=== PATIENT | female | born 1970 | race Caucasian/White ===

== ENCOUNTER 2020-03-19 06:53 | Emergency (ER) | payer OTHER, SELFPAY ==
[2020-03-19 07:00] VITALS: BP 158/90; PULSE 79; RESP 16; TEMP 36.2; O2SAT 98
--- NOTE | 2020-03-19 07:06 | ED.WOUNDLAC ---
HPI - Wound/Laceration General Chief Complaint: Wound/Laceration Stated Complaint: Laceration/infection? Time Seen by Provider: 03/19/20 06:59 History of Present Illness HPI narrative: Patient presents with several sores. She has redness and tenderness on the distal right thumb and distal right index finger. She said she was picking at a cuticle a week ago. She is right-handed. She works at [employer]. She says the pain on her right index finger is 7 out of 10. She also has a sore on her right upper eyelid. She said that she picked at it this morning and a parasite came out. She also points to her right arm and says see the streaks, those are parasites . Family when I asked if she has any other sores she said yes on her nose. She pulls her mask down and her nose has clear nasal drainage with a sore on the tip. She smokes cigarettes, drinks alcohol, smokes marijuana. She denies any surgeries. She denies having been sick in the last 2 weeks. Onset (ago): week(s) Extremity Location: Right: hand Place: home Context: other (Picking at her cuticle) Associated symptoms: pain Treatments prior to arrival: bandage Related Data Home Medications Medication Instructions Recorded Confirmed No Home Medications 03/19/20 03/19/20 Allergies Allergy/AdvReac Type Severity Reaction Status Date / Time No Known Allergies Allergy Mild Verified 03/19/20 07:07 Review of Systems Review of Systems: Narrative: CONSTITUTIONAL: Denies fever, chills, or sweats. EYES: Denies visual changes, redness, or discharge. ENT: Denies rhinorrhea, congestion, sore throat, or otalgia. CARDIOVASCULAR: Denies chest pain, palpitations, or edema. RESPIRATORY: Denies cough or dyspnea. GASTROINTESTINAL: Denies abdominal pain, nausea, vomiting, or diarrhea. GENITOURINARY: Denies dysuria or hematuria. SKIN: Soreness on the tips of her right thumb, right index finger, right upper eyelid, tip of her nose. MUSCULOSKELETAL: Denies back pain, joint pain, or myalgia. NEUROLOGIC: Denies headache, numbness, or weakness. . All systems reviewed & are unremarkable except as noted in HPI and below PMFSH Surgical History Surgical History No pertinent past surgical history Social History Social History (Updated 03/19/20 @ 07:10 by Vivian Wright MD) Smoking status: Current every day smoker Alcohol intake: current Substance use: current Substance use type: marijuana Gender identity (if verbalized by the patient): Female Exam Narrative: Exam Narrative: GENERAL: Well-appearing, well-nourished, and smells of alcohol. HEAD: Normocephalic, atraumatic. EYES: PERRLA and EOMI. right upper eyelid has a pickers ulcer and surrounding erythema. ENT: Nares clear nasal drainage. Mucous membranes moist. Scab on the tip of her nose. NECK: Supple. CHEST: Clear to auscultation. No respiratory distress. HEART: Regular rate and rhythm. No murmur heard. Normal peripheral pulses. ABDOMEN: Soft, nontender, nondistended, normal active bowel sounds. EXTREMITIES: Normal range of motion. No edema. Tip of the index finger on the right tip of the thumb on the right, both have mild erythema and cracked skin. SKIN: Warm, dry NEURO: No focal deficits. Alert and oriented x3. PSYCH: Seems sad and upset. MDM - Wound/Laceration Medical Records Attestation: I reviewed the patient's medical records. Discharge Plan Discharge Clinical Impression: Cellulitis Qualifiers: Site of cellulitis: unspecified site Qualified Code(s): L03.90 - Cellulitis, unspecified Patient Disposition: Home, Self-Care Condition: Stable Instructions: Antibiotic Form Prescriptions: No Action No Home Medications RF: 0 Follow-up/Referrals: PHYSICIAN,OPTICAL LAB TECHNICIAN [Primary Care Provider] - Time of Disposition: 07:06
[2020-03-19] MEDS: CEPHALEXIN 500 MG CAPSULE PO (07:17)
[2020-03-19] MEDS: ACETAMINOPHEN 325 MG TABLET 650 MG PO (07:17)
[2020-03-19] MEDS: IBUPROFEN 600 MG TABLET PO (07:18)
== END 2020-03-19 07:24 | disposition home or self-care (01) ==
LOC: ANHED 07:11
PROVIDERS: Emergency Provider Emergency Medicine
DX: L03.90 Cellulitis, unspecified (principal); F17.210 Nicotine dependence, cigarettes, uncomplicated
CPT/HCPCS: 99283; A9270

== ENCOUNTER 2021-01-10 18:24 | Emergency (ER) | payer OTHER, SELFPAY ==
--- NOTE | ~2021-01-10 | XR_ITS ---
XR chest 1V portable DATE: 01/10/2021 18:56 INDICATION: Shortness of breath TECHNIQUE: Portable AP chest on 01/10/2021 at 1847 hours COMPARISON: None FINDINGS: There is bibasilar discoid atelectasis. The lungs are otherwise clear. No pleural effusion or pulmonary vascular congestion or pneumothorax. Normal heart size. No hilar or mediastinal enlargement. IMPRESSION: Bibasilar atelectasis Reviewed, dictated and finalized at location A. IMPRESSION: Bibasilar atelectasis
[2021-01-10 18:27] VITALS: BP 122/68; PULSE 110; RESP 20; TEMP 36.7; O2SAT 95
--- NOTE | 2021-01-10 18:35 | ECG_ITS ---
Measurements Intervals [place] Rate: 98 P: 58 [place]: 115 QRS: 33 QRSD: 89 T: 34 QT: 356 QTc: 456 Interpretive Statements SINUS RHYTHM WITH SHORT [place] INTERVAL POSSIBLE LEFT ATRIAL ENLARGEMENT CONSIDER INFERIOR INFARCT, AGE INDETERMINATE T WAVE ABNORMALITY IN ANTERIOR LEADS- CONSIDER ISCHEMIA BASELINE WANDER- V3-V5 ABNORMAL ECG Electronically Signed On 01-10-2021 21:18:24 CDT by Jaya Fang D.O.
[2021-01-10 18:59] LABS: Basophils Percent Auto 0.3 % (0.2-1.2); Hematocrit 41.2 % (37.0-47.0); Hemoglobin 13.3 g/dL (12.0-15.0); Immature Granulocyte Absolute 0.05 K/mm3 (0.00-0.031); Immature Granulocyte Percent A 0.4 % (0-0.5); Lymphocytes Absolute Auto 0.33 K/mm3 (0.9-3.2); Lymphocytes Percent Auto 2.7 % (18.3-44.2); Mean Corpuscular HGB Conc 32.3 g/dl (32-36); Mean Corpuscular Hemoglobin 29.2 pg (26-34); Mean Corpuscular Volume 90.4 fl (80-100); Mean Platelet Volume 9.5 fl (7.4-10.4); Monocytes Absolute Auto 0.1 K/mm3 (0.1-0.6); Monocytes Percent Auto 1.1 % (2.6-8.5); Neutrophils Absolute Auto 11.6 K/mm3 (1.3-6.7); Neutrophils Percent Auto 95.5 % (45.5-73.1); Platelet Count Result 386 k/mm3 (150-375); Red Blood Count 4.56 M/mm3 (4.2-5.4); White Blood Count 12.2 K/mm3 (4.5-10.0)
[2021-01-10 19:01] VITALS: BP 108/74; PULSE 110; RESP 18; O2SAT 93
[2021-01-10 19:11] LABS: Anion Gap 13 mmol/L (8-16); Blood Urea Nitrogen 21 mg/dL (7-17); Calcium 8.7 mg/dL (8.4-10.2); Carbon Dioxide 21 mmol/L (22-30); Chloride 106 mmol/L (98-107); Estimated CRCL calculation 84 ml/min; Estimated Glomerular Filt Rate > 60; Glucose 243 mg/dL (65-105); Potassium 4.2 mmol/L (3.4-5.0); Sodium 140 mmol/L (137-145)
[2021-01-10 19:16] VITALS: BP 102/76; PULSE 95; RESP 24; O2SAT 97
--- NOTE | 2021-01-10 20:24 | ED.GENADULT ---
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 Patient under a lot of stress lately. History of panic attack. Patient smokes, drinks and uses marijuana. Patient had a recent diagnosis of skin rash left wrist and hand started 3 weeks ago started on antiviral treatment and prednisone, gradually getting better, the course repeated again few days ago. Patient denies any chest pain, fever, chills, nausea, vomiting, back pain or abdominal pain. Patient does not take medicine at home. Related Data Home Medications Medication Instructions Recorded Confirmed No Home Medications 03/19/20 01/10/21 Allergies Allergy/AdvReac Type Severity Reaction Status Date / Time No Known Allergies Allergy Mild Verified 01/10/21 18:53 Review of Systems Review of Systems: Narrative: CONSTITUTIONAL: Denies fever, chills, or sweats. EYES: Denies visual changes, redness, or discharge. ENT: Denies rhinorrhea, congestion, sore throat, or otalgia. CARDIOVASCULAR: Denies chest pain, palpitations, or edema. RESPIRATORY: Denies cough or dyspnea. GASTROINTESTINAL: Denies abdominal pain, nausea, vomiting, or diarrhea. GENITOURINARY: Denies dysuria or hematuria. SKIN: Denies rash or itching. MUSCULOSKELETAL: Denies back pain, joint pain, or myalgia. NEUROLOGIC: Denies headache, numbness, or weakness. PSYCHIATRIC: Denies anxiety or depression. PMFSH Surgical History Surgical History No pertinent past surgical history Social History Social History Smoking status: Current every day smoker Alcohol intake: current Substance use: current Substance use type: marijuana Gender identity (if verbalized by the patient): Female Exam Narrative: Exam Narrative: General appearance: Well-developed, well-nourished Skin: Left hand and wrist dorsally showed healing rash, no erythema, no warmth, no discharge. Head: Normocephalic, nontraumatic Eyes: Clear conjunctiva ENT: Oropharynx normal, ears normal, nose normal Neck: Supple, nontender Chest and respiratory: Airway patent, no respiratory distress, no accessory muscle use Heart: Tachycardia Abdomen: Soft, nontender, no organomegaly, quiet bowel sounds Vascular: Normal peripheral pulses, normal capillary refill. Musculoskeletal: Normal range of motion, nontender back Neurologic: Alert and oriented ?3, HEEL GUMMER is normal as tested, no gross motor deficit Course Course Emergency Course: Improved Vital Signs Vital signs: Vital Signs Temperature 36.7 C 01/10/21 18:27 Pulse Rate 110 H 01/10/21 18:27 Respiratory Rate 20 01/10/21 18:27 Blood Pressure 122/68 01/10/21 18:27 Pulse Oximetry 95 01/10/21 18:27 Temperature 36.7 C 01/10/21 18:27 Pulse Rate 110 H 01/10/21 18:27 Respiratory Rate 20 01/10/21 18:27 Blood Pressure 122/68 01/10/21 18:27 Pulse Oximetry 95 01/10/21 18:27 Medical Decision Making MDM Narrative Medical decision making narrative: Difficulty breathing earlier today high likely secondary to anxiety/panic attack, symptom resolved immediately on arrival to the emergency room. Labs, chest x-ray, UA, urine drug screen ordered. Further plan to follow Differential Diagnosis Differential Diagnosis: Anxiety related symptom
[2021-01-10] MEDS: SODIUM CHLORIDE 0.9% IV 1,000 ML 999 ML IV CONT (20:25)
[2021-01-10 20:26] LABS: Alanine Aminotransferase 20 U/L (4-35); Albumin Level 4.1 g/dL (3.5-5.1); Alkaline Phosphatase 81 U/L (38-126); Aspartate Amino Transferase 27 U/L (14-36); Bilirubin,Total 0.4 mg/dL (0.2-1.3)
[2021-01-10 20:32] VITALS: BP 105/66; PULSE 111; RESP 25
[2021-01-10 20:50] LABS: D Dimer 0.27 ug/mL (<0.48)
[2021-01-10 20:53] VITALS: BP 118/70; PULSE 92; RESP 20; TEMP 36.8; O2SAT 99
[2021-01-10 21:34] LABS: Barbiturate Screen Urine Negative (Negative); Benzodiazepines Screen Urine Positive (Negative)
[2021-01-10 21:35] LABS: Cannabinoid Screen Urine Positive (Negative); Methadone Screen Urine Negative (Negative); Opiate Screen Urine Negative (Negative); Phencyclidine Screen Urine Negative (Negative)
[2021-01-10 21:45] VITALS: BP 118/70; PULSE 98; RESP 20; TEMP 36.8; O2SAT 95
[2021-01-10 21:59] LABS: Cocaine Screen Urine Positive (Negative)
[2021-01-10 22:00] LABS: Amphetamine Screen Urine Positive (Negative)
[2021-01-13 23:30] LABS: Methyl Alcohol Level None Detected (None Detected)
== END 2021-01-10 21:45 | disposition home or self-care (01) ==
PROVIDERS: Emergency Provider Emergency Medicine
DX: F41.9 Anxiety disorder, unspecified (principal); R73.9 Hyperglycemia, unspecified; F17.200 Nicotine dependence, unspecified, uncomplicated; R94.31 Abnormal electrocardiogram [ECG] [EKG]; R91.8 Other nonspecific abnormal finding of lung field
CPT/HCPCS: 36415; 71045; 80048; 80076; 80307; 84600; 85025; 85380; 93005; 96360; 99284; J7030

== ENCOUNTER 2024-10-29 03:55 | Emergency (ER) | payer OTHER, SELFPAY ==
--- OUTSIDE RECORDS SUMMARY | 2024-10-29 03:57 | XMS_ITS | Clinical Summary ---
Author Organization [facility] Address [address] [place] [address] Care Team Providers Care Health Services Coordinator Name Role Phone Unknown, Provider Primary Care Provider Unavaila ble Source Comments [facility],non-owned Affiliates and Associated Physician Practices is amultiple site organization consisting of ambulatory clinics and hospital sitesin [place], [place], [place] and [place]. This disclosure is being madepursuant to the Care Everywhere program and may not contain all information available regarding this patient. Last updated 18.[facility] Allergies No known active allergies Medications * Be aware that medications may not be up to date on this document. Alwaysverify current medications with the patient. 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 Sexual Orientation Not on file Last Filed Vital Signs Vital Sign Reading Time Taken Comments Blood Pressure - - Pulse 108 09/16/2019 2:22 PM PARAEDUCATOR Temperature 36.9 C (98.5 F) 09/16/2019 2:22 PM PARAEDUCATOR Respiratory Rate 22 09/16/2019 2:22 PM PARAEDUCATOR Oxygen Saturation 97% 09/16/2019 2:22 PM PARAEDUCATOR Inhaled Oxygen Concentration - - Weight 77.1 kg (170 lb) 09/16/2019 2:22 PM PARAEDUCATOR Height 165.1 cm (5' 5 ) 09/16/2019 2:22 PM PARAEDUCATOR Body Mass Index 28.29 09/16/2019 2:22 PM PARAEDUCATOR Plan of Treatment Health Maintenance Due Date Last Done Comments COLOGUARD (AGES 45-75) - COL ON CA SCREENING 1970 COLON MONITORING 1970 COLONOSCOPY - COLON CA SCREENING 1970 CT COLONOGRAPHY - COLON CA SCREENING 1970 Colorectal Cancer Screening 1970 FIT - COLON CA SCREENING 1970 FLEX SIG - COLON CA SCREENING 1970 LIPID TESTING 1970 MAMMOGRAM 1970 PAP SMEAR 1970 HIV SCREENING 1985 HEPATITIS C SCREENING 07/11/1988 DTAP/TDAP/TD VACCINES (1 - Tdap) 1989 HEPATITIS B VACCINE (1 of 3 - 19+ 3-dose series) 1989 PNEUMOCOCCAL VACCINE (1 of 2 - PCV) 1989 SCREENING FOR DIABETES 09/16/2019 PNEUMOCOCCAL VACCINE 50+ (1 of 1 - PCV) 2020 ZOSTER VACCINE (1 of 2) 2020 COVID-19 VACCINE (1 - 2023-2 5 season) 2024 INFLUENZA VACCINE (#1) 2024 DEPRESSION SCREENING 08/07/2024 HIB VACCINE Aged Out No longer eligi ble based on patient's age to complete this topic HPV VACCINE Aged Out No longer eligi ble based on patient's age to complete this topic MENINGOCOCCAL (Group B) VACC INE SHARED DECISION-MAKING Aged Out No longer eligibl e based on patient's age to complete this topic MENINGOCOCCAL GROUPS A/C/Y/W VACCINE Aged Out No longer eligible b ased on patient's age to complete this topic Care Teams Health Services Coordinator Relationship Specialty Start Date End Date Unknown, Provider PCP - General 09/16/19
[2024-10-29 04:01] VITALS: BP 161/94; PULSE 102; RESP 16; O2SAT 96
[2024-10-29 04:02] VITALS: BP 157/93; PULSE 105; RESP 20; TEMP 37.2; O2SAT 96
--- NOTE | 2024-10-29 04:02 | ECG_ITS ---
Test Date: 2024-10-29 04:05:51 Measurements Intervals [place] Rate: 99 P: 46 MA: 131 QRS: 43 QRSD: 90 T: 65 QT: 361 QTc: 464 Interpretive Statements SINUS RHYTHM ST DEVIATION AND MODERATE T-WAVE ABNORMALITY, CONSIDER ANTERIOR ISCHEMIA [-0.1+ mV T-WAVE IN V3/V4] No previous ECG available for comparison Electronically Signed On 10-29-2024 16:09:03 CDT by Yuri Oviedo M.D.
[2024-10-29 04:20] LABS: Basophils Absolute Auto 0.1 K/mm3 (0.0-0.1); Basophils Percent Auto 0.6 % (0.2-1.2); Eosinophils Absolute Auto 0.2 K/mm3 (0-0.3); Hematocrit 49.7 % (37.0-47.0); Hemoglobin 16.6 g/dL (12.0-15.0); Immature Granulocyte Absolute 0.05 K/mm3 (0.00-0.031); Immature Granulocyte Percent A 0.3 % (0-0.5); Lymphocytes Absolute Auto 1.34 K/mm3 (0.9-3.2); Lymphocytes Percent Auto 8.6 % (18.3-44.2); Mean Corpuscular HGB Conc 33.4 g/dl (32-36); Mean Corpuscular Hemoglobin 29.5 pg (26-34); Mean Corpuscular Volume 88.4 fl (80-100); Mean Platelet Volume 9.7 fl (7.4-10.4); Monocytes Absolute Auto 0.9 K/mm3 (0.1-0.6); Monocytes Percent Auto 5.6 % (2.6-8.5); Neutrophils Absolute Auto 13.2 K/mm3 (1.3-6.7); Neutrophils Percent Auto 83.9 % (45.5-73.1); Platelet Count Result 356 k/mm3 (150-375); Red Blood Count 5.62 M/mm3 (4.2-5.4); Red Cell Distribution Width 14.1 % (11.5-14.5); White Blood Count 15.7 K/mm3 (4.5-10.0)
[2024-10-29 04:21] VITALS: BP 139/90; BP 144/86; PULSE 104; PULSE 88
[2024-10-29 04:22] VITALS: BP 105/82; PULSE 123
[2024-10-29] MEDS: SODIUM CHLORIDE 0.9% IV 1,000 ML 999 ML IV CONT (04:26)
--- NOTE | 2024-10-29 04:30 | ED_ITS ---
HPI - GI Bleed General Chief complaint: GI Bleed Stated complaint: i think I have food poisoning Time Seen by Provider: 10/29/24 04:00 History of Present Illness HPI Narrative: Patient is a 54-year-old female who presents ER with diarrhea and blood in stool. She began having diarrhea around 2:00 a.m. on 10/28/2024. Symptoms have continued and she began having bright red blood mixed in with the stool. Small amounts that speckled does stool which is all liquid. No known sick contacts. Has had fevers and chills. No vomiting. No abdominal pain. Only cramping. Related Data Allergies Allergy/AdvReac Type Severity Reaction Status Date / Time No Known Allergies Allergy Mild Verified 01/10/21 18:53 Review of Systems 2 Review of Systems: All systems reviewed & are unremarkable except as noted in HPI and below Constitutional: Constitutional: Reports no additional constitutional complaints Cardiovascular: Cardiovascular: Reports no additional cardiovascular complaints Respiratory: Respiratory: Reports no additional respiratory complaints Gastrointestinal: Gastrointestinal: Reports no additional gastrointestinal complaints Musculoskeletal: Musculoskeletal: Reports no additional musculoskeletal complaints [facility] Surgical History Surgical History (Updated 10/29/24 @ 04:32 by Marcus Sweeney MD) H/O tubal ligation No pertinent past surgical history Social History Social History Smoking status: Current every day smoker Alcohol intake: current Substance use: current Substance use type: marijuana Gender identity (if verbalized by the patient): Female Exam 2 Narrative: GENERAL: Well-appearing, well-nourished, and in no acute distress. HEAD: Normocephalic, atraumatic. ENT: Mucous membranes moist. CHEST: Clear to auscultation. No respiratory distress. HEART: Regular rate and rhythm. Normal peripheral pulses. ABDOMEN: Soft, nontender, nondistended. EXTREMITIES: Normal range of motion. No edema. SKIN: Warm, dry, no rash. NEURO: Alert and oriented x3. PSYCH: Normal mood and affect. Course Course Emergency Course: Patient initially orthostatic with blood pressure is going down into the low 100s. After 1 L IV fluid blood pressure markedly improved. Patient feels better. Discussed diagnosis and treatment plan and patient verbalized understanding. Vital Signs Vital signs: Vital Signs Pulse Rate 102 H 10/29/24 04:01 Respiratory Rate 16 10/29/24 04:01 Blood Pressure 161/94 H 10/29/24 04:01 Pulse Oximetry 96 10/29/24 04:01 Temperature 98.9 F 10/29/24 04:02 Pulse Rate 106 H 10/29/24 05:35 Respiratory Rate 20 10/29/24 04:02 Blood Pressure 147/88 H 10/29/24 05:35 Pulse Oximetry 96 10/29/24 04:02 Oxygen Delivery Room Air 10/29/24 04:02 MDM - GI Bleed Lab Data 10/29/24 04:13 10/29/24 04:13 Labs: Lab Results 10/29/24 Range/Units 04:13 WBC 15.7 H (4.5-10.0) K/mm3 RBC 5.62 H (4.2-5.4) M/mm3 Hgb 16.6 H D (12.0-15.0) g/dL Hct 49.7 H (37.0-47.0) % MCV 88.4 (80-100) fl MCH 29.5 (26-34) pg MCHC 33.4 (32-36) g/dl RDW 14.1 (11.5-14.5) % Plt Count 356 (150-375) k/mm3 MPV 9.7 (7.4-10.4) fl Immature Gran % (Auto) 0.3 (0-0.5) % Neut % (Auto) 83.9 H (45.5-73.1) % Lymph % (Auto) 8.6 L (18.3-44.2) % [place] % (Auto) 5.6 (2.6-8.5) % Eos % (Auto) 1.0 (0-4.4) % Baso % (Auto) 0.6 (0.2-1.2) % Lymph # (Auto) 1.34 (0.9-3.2) K/mm3 [place] # (Auto) 0.9 H (0.1-0.6) K/mm3 Eos # (Auto) 0.2 (0-0.3) K/mm3 Baso # (Auto) 0.1 (0.0-0.1) K/mm3 Abs Immat Gran (auto) 0.05 H (0.00-0.031) K/mm3 Absolute Neuts (auto) 13.2 H (1.3-6.7) K/mm3 Absolute Nucleated RBC 0.000 (0.0-0.012) K/mm3 Nucleated RBC % 0.0 (0.0-0.2) % PT 13.1 (11.1-14.7) Seconds INR 1.0 APTT 27.2 (22.3-36.8) Seconds Sodium 135 L (137-145) mmol/L Potassium 4.1 (3.4-5.0) mmol/L Chloride 99 (98-107) mmol/L Carbon Dioxide 26 (22-30) mmol/L Anion Gap 10 (4-12) mmol/L BUN 10 D (7-17) mg/dL Creatinine 0.70 (0.7-1.0) mg/dL Estim Creat Clear Calc 81 ml/min Estimated GFR > 60 (59 - ) Glucose 141 H (65-110) mg/dL Calcium 9.3 (8.4-10.2) mg/dL Total Bilirubin 1.3 (0.2-1.3) mg/dL AST 42 H (14-36) U/L ALT 77 H (6-35) U/L Alkaline Phosphatase 108 (38-126) U/L Total Protein 8.0 (6.3-8.2) g/dL Albumin 4.6 (3.5-5.1) g/dL Blood Type A Negative Antibody Screen Negative Discharge Plan Discharge Clinical Impression: Hemorrhagic colitis Patient Disposition: Home, Self-Care Condition: Stable Instructions: Colitis (ED) Additional Instructions: Please drink plenty of fluids at home. Return to the emergency department if you develop high fevers, have persistent severe abdominal pain, or have bloody stools or vomit, as these could be signs of a more serious medical emergency. Return to the emergency department if you are unable to keep down liquids because of severe nausea/vomiting. Patient Language: Thai Prescriptions: New ciprofloxacin HCl [Cipro] 500 mg tablet 500 mg PO Q12H Qty: 14 0RF metronidazole 500 mg tablet 500 mg PO Q8H Qty: 21 0RF ondansetron 4 mg tablet,disintegrating 4 mg PO Q6H PRN (Reason: nausea and vomiting) Qty: 10 0RF Follow-up/Referrals: Carlton Modi MD [Physician] - UNKNOWN,DOCTOR [Primary Care Provider] -
[2024-10-29 04:31] LABS: Alanine Aminotransferase 77 U/L (6-35); Albumin Level 4.6 g/dL (3.5-5.1); Alkaline Phosphatase 108 U/L (38-126); Anion Gap 10 mmol/L (4-12); Aspartate Amino Transferase 42 U/L (14-36); Bilirubin,Total 1.3 mg/dL (0.2-1.3); Blood Urea Nitrogen 10 mg/dL (7-17); Calcium 9.3 mg/dL (8.4-10.2); Carbon Dioxide 26 mmol/L (22-30); Chloride 99 mmol/L (98-107); Estimated CRCL calculation 81 ml/min; Estimated Glomerular Filt Rate > 60; Glucose 141 mg/dL (65-110); Potassium 4.1 mmol/L (3.4-5.0); Prothrombin Time 13.1 Seconds (11.1-14.7); Sodium 135 mmol/L (137-145)
--- OUTSIDE RECORDS SUMMARY | 2024-10-29 04:31 | XMS_ITS | Clinical Summary ---
Author Organization [facility] Address [address] [place] [address] Care Team Providers Care Sales Mgr Name Role Phone Unknown, Provider Primary Care Provider Unavaila ble Source Comments [facility],non-owned Affiliates and Associated Physician Practices is amultiple site organization consisting of ambulatory clinics and hospital sitesin [place], [place], [place] and [place]. This disclosure is being madepursuant to the Care Everywhere program and may not contain all information available regarding this patient. Last updated 18.[facility] Allergies No known active allergies Medications * Be aware that medications may not be up to date on this document. Alwaysverify current medications with the patient. 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 Sexual Orientation Not on file Last Filed Vital Signs Vital Sign Reading Time Taken Comments Blood Pressure - - Pulse 108 09/16/2019 2:22 PM REVENUE ACCOUNTANT Temperature 36.9 C (98.5 F) 09/16/2019 2:22 PM REVENUE ACCOUNTANT Respiratory Rate 22 09/16/2019 2:22 PM REVENUE ACCOUNTANT Oxygen Saturation 97% 09/16/2019 2:22 PM REVENUE ACCOUNTANT Inhaled Oxygen Concentration - - Weight 77.1 kg (170 lb) 09/16/2019 2:22 PM REVENUE ACCOUNTANT Height 165.1 cm (5' 5 ) 09/16/2019 2:22 PM REVENUE ACCOUNTANT Body Mass Index 28.29 09/16/2019 2:22 PM REVENUE ACCOUNTANT Plan of Treatment Health Maintenance Due Date [...] age to complete this topic Care Teams Sales Mgr Relationship Specialty Start Date End Date Unknown, Provider PCP - General 09/16/19
[2024-10-29 04:32] LABS: Partial Thromboplastin Time 27.2 Seconds (22.3-36.8)
[2024-10-29 05:34] VITALS: BP 159/86; BP 165/90; PULSE 101; PULSE 82
[2024-10-29 05:35] VITALS: BP 147/88; PULSE 106
== END 2024-10-29 06:04 | disposition home or self-care (01) ==
PROVIDERS: Emergency Provider Emergency Medicine
DX: K52.9 Noninfective gastroenteritis and colitis, unspecified (principal); F17.210 Nicotine dependence, cigarettes, uncomplicated
CPT/HCPCS: 36415; 80053; 85025; 85610; 85730; 86850; 86900; 86901; 93005; 96360; 99283; J7030